=== PATIENT | female | born 1955 | race Caucasian/White ===

== ENCOUNTER 2024-06-05 13:12 | Outpatient (RCR) | payer MEDICARE, OTHER, SELFPAY | END 2024-06-05 23:59 | disposition home or self-care (01) | LOC: CRHB 13:12 | PROVIDERS: ATTENDING PHYSICIAN Internal Medicine Cardiovascular Disease; FAMILY PHYSICIAN Family Medicine | DX: I25.10 Atherosclerotic heart disease of native coronary artery without angina pectoris (principal); Z95.1 Presence of aortocoronary bypass graft | CPT/HCPCS: G0422; G0423 ==

== ENCOUNTER 2024-07-04 10:38 | Outpatient (RCR) | payer MEDICARE, OTHER, SELFPAY | END 2024-07-04 23:59 | disposition home or self-care (01) | LOC: CRHB 10:38 | PROVIDERS: ATTENDING PHYSICIAN Internal Medicine Cardiovascular Disease; FAMILY PHYSICIAN Family Medicine | DX: I25.10 Atherosclerotic heart disease of native coronary artery without angina pectoris (principal); Z95.1 Presence of aortocoronary bypass graft | CPT/HCPCS: G0422; G0423 ==

== ENCOUNTER 2024-08-04 10:02 | Outpatient (RCR) | payer MEDICARE, OTHER, SELFPAY | END 2024-08-04 23:59 | disposition home or self-care (01) | LOC: CRHB 10:02 | PROVIDERS: ATTENDING PHYSICIAN Internal Medicine Cardiovascular Disease; FAMILY PHYSICIAN Family Medicine | DX: I25.10 Atherosclerotic heart disease of native coronary artery without angina pectoris (principal); Z95.1 Presence of aortocoronary bypass graft | CPT/HCPCS: G0422; G0423 ==

== ENCOUNTER 2024-09-03 09:15 | Outpatient (RCR) | payer MEDICARE, OTHER, SELFPAY | END 2024-09-03 23:59 | disposition home or self-care (01) | LOC: CRHB 09:15 | PROVIDERS: ATTENDING PHYSICIAN Internal Medicine Cardiovascular Disease; FAMILY PHYSICIAN Family Medicine | DX: I25.10 Atherosclerotic heart disease of native coronary artery without angina pectoris (principal); I25.110 Atherosclerotic heart disease of native coronary artery with unstable angina pectoris (principal); Z95.1 Presence of aortocoronary bypass graft | CPT/HCPCS: G0422; G0423 ==

== ENCOUNTER 2025-04-27 17:34 | Observation (INO) | payer MEDICARE, OTHER, SELFPAY ==
[2025-04-27 12:22] LABS: Hematocrit 42.0 % (37.0-47.0); Hemoglobin 13.9 g/dL (12.0-16.0); Mean Corp Hgb Conc. 33.1 g/dL (33.0-37.0); Mean Corpuscular Volume 89.4 fL (81.0-99.0); Nucleated Red Blood Cells % 0 %; Platelet Count 197 10^3/uL (130-400); Red Cell Dist. Width 14.0 % (11.5-14.5)
[2025-04-27 12:32] LABS: ALT (SGPT) 19 U/L (0-35); AST (SGOT) 21 U/L (14-36); Albumin 4.5 g/dl (3.5-5.0); Alkaline Phosphatase 73 U/L (38-126); Blood Urea Nitrogen 17 mg/dl (7-17); Calcium 9.1 mg/dl (8.4-10.2); Carbon Dioxide 23 mmol/L (22-30); Chloride 108 mmol/L (98-107); Glucose 126 mg/dl (70-99); Potassium 4.0 mmol/L (3.5-5.1); Sodium 138 mmol/L (135-145); Total Protein 7.0 g/dl (6.3-8.2); eGFR > 60.00
--- NOTE | 2025-04-27 12:47 | ED.GENMED ---
History of Present Illness
General
Chief Complaint: Visual Problem
Source: patient
Exam Limitations: none
Time Seen by Provider: 04/27/25 12:33
Nursing documentation reviewed up to this point in time: agreed with
History of Present Illness
History of Present Illness:
Patient with a history of CABG in May 2023, currently on 81 mg aspirin daily, presents to ED secondary to sudden onset of blurry vision, followed by double vision, yesterday afternoon, which now has resolved completely. Double vision described
as objected on top of each other vertically when looking straight ahead. Patient spoke with her primary care physician who advised patient to patient. In addition, patient is complaining of posterior neck pain, which she has had for the past 4 to 5
days, attributed to recent shopping. Denies headache. Denies dizziness. Denies loss of sensation or weakness. Denies difficulty with ambulation. Denies difficulty with swallowing. However, over the past 2 days, patient has noted that she had
difficulty explaining/verbalizing what she was thinking. Denies previous history of similar symptoms. Denies recent illness. Denies recent change in medications or diet.
Review of Systems
Review of Systems
Allergies reviewed?: Yes
All Other Systems: ROS reviewed and negative except as documented in HPI and ROS
Constitutional: Reports no symptoms
Respiratory: Reports no symptoms
Cardiac: Reports no symptoms
ABD/GI: Reports no symptoms
: Reports no symptoms
Musculoskeletal: Reports neck pain
Skin: Reports no symptoms
Neurological: Reports other (Blurred/double vision)
Phy Exam
Physical Exam
Physical Exam:
Physical Exam
General: no apparent distress, not acutely ill. afebrile.
Head: nc/at. eomi
Neck: supple. normal range of motion.
Heart: s1/s2 regular rate and rhythm
Lungs: no acute respiratory distress. clear bilaterally
Abdomen: normal bowel sounds. not tender.
Neuro: alert and oriented x 3. no focal neurological deficits. normal speech. normal gait
Skin: no rash
Psychiatric: well kept. interactive and cooperative
Extremities: no edema. no calf tenderness.
Course
Orders/Labs/Results
Orders:
Orders
04/27/25 11:56
CT Head W/o Iv Contrast Urgent
Comment: denies today. sent in to r/o TIA
Reason For Exam: double vision yesterday
04/27/25 12:09
Cardiovascular Evaluation Urgent
Complete Blood Count/With Diff Urgent
Comprehensive Metabolic Panel Urgent
Glycohemoglobin (HgbA1c) Urgent
04/27/25 12:56
Electrocardiogram (*1) Urgent
Reason for Study: TIA/Stroke
CT Head & Neck Angio W/wo IV Urgent
Comment:
Reason For Exam: neck pain w blurred/double vision
EKG- Treatment ONCE
04/27/25 14:38
Acetaminophen [Tylenol] 1,000 mg PO NOW STA
04/27/25 15:03
Add On- LAB Routine
Tests Added?: lipid panel, hgb A1C
04/27/25 16:17
Aspirin 243 mg PO NOW STA
Clopidogrel Bisulfate [Plavix] 300 mg PO NOW STA
04/27/25 16:49
Admit/Transfer Patient As Directed
Co-Sign Provider:
Level of Care: Observation services
Assign to:: Telemetry
Physician / Group: Htay
Diagnosis: Double Vision
Reason for Telemetry: CVA/TIA
Date to Stop Telemetry: 04/30/25
Time to Stop Telemetry: 11:00
PRN Pain Medication Management As Directed
May give lesser potent ordered pain med per pt: Yes
preference::
Protocol:: Medication orders for pain may be administered in a
manner that supports deferring to patient preference
when the pt is:
- Requesting an ordered lesser potent pain medication.
Least to most potent pain medications are defined
as: acetaminophen < NSAID < tramadol < opioids
(morphine, oxycodone, hydromorphone).
- Requesting a lesser dose of the same medication IF
ORDERED.
- Requesting a less intrusive route of administration
if both routes are prescribed by the provider (PO <
IV).
04/27/25 16:50
Code Status As Directed
Resuscitation Status: Full Code
04/27/25 19:10
Acetaminophen [Tylenol/Feverall] 650 mg RECTAL Q4HPRN PRN
Acetaminophen [Tylenol] 650 mg PO Q4HPRN PRN
04/27/25 19:10
Echo 2D MMode Color/Doppler Routine
Reason for Study: TIA
Case Management Consult ONCE
Case Management Consult: Discharge Planning
Comment: stroke/tia
DIETARY IP CONSULT Routine
Reason for Consult: stroke/TIA
NEUROLOGY CONSULT Urgent
Consulting Provider: Octavio Masterson
Was physician already notified: Yes
Preparer Samples And Repairs Urgent
MR Brain Without Contrast Routine
Comment:
Reason For Exam: stroke/TIA
Recent pill cam endoscopy?: No
Activity As Directed
Activity Level: Out of Bed-Early Mobility
NIH Stroke Scale As Directed
Directions: Per protocol
Comment: every shift and with any change in condition or mental status
Neurological Checks As Directed
Frequency: q4h
Additional Instructions:: q4h x 24h upon admission to the floor, then qshift & with any change in condition
and mental status
Patient Education As Directed
Type: Stroke education packet
Comment: provide to patient and family
Pneumatic Compression Sleeves As Directed
Type: Knee high
Vital Signs As Directed
Frequency: Per unit guidelines
Call for:: BP greater than 180/105 mmHg or less than 100/60 mmHg
Ot Eval And Treat Routine
Pt Eval And Treat Routine
Activity Level: Out of Bed-Early Mobility
Speech Therapy Eval & Treat Routine
DX Deep Vein Thrombosis Video Routine
04/28/25 08:00
Aspirin Low Dose EC [Aspir Low (Enteric Coated)] 81 mg PO DAILY
Clopidogrel Bisulfate [Plavix] 75 mg PO DAILY
Metoprolol Xl [Toprol Xl] 25 mg PO DAILY
04/30/25 11:00
DC Protocol for Telemetry ONCE
Abnormal Lab Results
04/27/25
12:09
MPV 10.6 H fL
(7.4-10.4)
Chloride 108 H mmol/L
(98-107)
Glucose 126 H mg/dl
(70-99)
Total Cholesterol 245 H mg/dl
(50-199)
04/27/25 12:09
04/27/25 12:09
Vital Signs
Initial and Last Documented VS:
Initial Vital Signs
Temp Pulse Resp Pulse Ox
98.2 F 81 16 98
04/27/25 11:52 04/27/25 11:52 04/27/25 11:52 04/27/25 11:52
Last Documented Vital Signs
Temp Pulse Resp BP Pulse Ox
97.6 F 61 18 146/79 99
04/27/25 19:48 04/27/25 19:48 04/27/25 19:48 04/27/25 19:48 04/27/25 19:48
MDM/Problems Addressed
MDM/Problems Addressed:
CT/CTA head and neck report reviewed and discussed with patient.
Patient evaluated in ED by neurology, , who recommends patient to be admitted to the hospitalist service for further evaluation and treatment. Recommend starting patient on aspirin and Plavix.
*Pulse Oximetry
SaO2: 98
Oxygen Mode of Delivery: Room air
Patient hypoxic: no
*Critical Care Note
Total Time (30-74mins, 75-104mins- exclusive of procedures): Not Applicable
ED Attending Note
-
Portions of this chart may have been created with voice recognition software.� Occasional wrong word or��sound alike� substitutions may have occurred due to the inherent limitations of voice recognition software.
Discharge Plan
Departure
Patient Disposition: Admit
Date of Disposition: 04/27/25
Time of Disposition: 16:18
Admit to: Telemetry
Presentation/result/management discussed w/ accepting MD/DO: Hospitalist
Discharge Problem:
Brain TIA
Interventions
Interventions:
*General Assessment Last Done: 04/27/25 11:52
*Neglect/Abuse Screening Last Done: 04/27/25 11:52
*ED COVID-19 Vaccine History Last Done: 04/27/25 19:23
*ED Influenza Vaccine History Last Done: 04/27/25 11:52
[facility] Fall Risk Assessment Tool Last Done: 04/27/25 11:48
*Risk Screen - Suicide (C-SSRS) Last Done: 04/27/25 11:52
*Nursing Disposition Last Done: 04/27/25 19:14
ED- Neurological Assessment Last Done: 04/27/25 13:28
ED-EENT Assessment Last Done: 04/27/25 13:28
ED Swallowing Screen Last Done: 04/27/25 13:28
Discharge Date and Time
Discharge Date/Time: 04/27/25 19:14
[2025-04-27 14:00] VITALS: BP 138/71
--- NOTE | 2025-04-27 14:17 | CON.NEURO ---
Addendum entered and electronically signed by Octavio Masterson MD 04/27/25 20:08:
The patient was seen and examined today along with the nurse practitioner Michelle Nguyen, and agree with her assessment and management plan. Given below is my addendum.
Patient is a 70 year old female with a history of CABG in May 2023, currently on 81 mg aspirin daily, presented to [facility] on 04/27/2025 secondary to sudden onset of blurry vision, followed by double vision, yesterday afternoon, and she says that
she also had some difficulty in getting the words out. At this time all of her symptoms have resolved completely and therefore she is not TNK candidate.
CT of the head did not show acute intracranial abnormality
CTA of the head and neck did not show a large vessel occlusion.
Neurologic examination:
Alert and oriented x 3, speech is clear, the cranial nerves II to XII grossly intact, the motor strength is grossly 5/5 bilaterally, the sensations are intact and there is no limb ataxia seen.
The plan is to keep the patient on stroke pathway.
Aspirin 81 mg daily
Plavix 75 mg daily
Atorvastatin 40 mg daily
Echocardiogram
Ophthalmologic examination as an outpatient
LDL goal of less than 70
MRI of the brain without contrast.
Original Note:
Neuro Assessment/Plan
Assessment
Patient is a 70 year old female with a history of CABG in May 2023, currently on 81 mg aspirin daily, presented to [facility] on 04/27/2025 secondary to sudden onset of blurry vision, followed by double vision, yesterday afternoon, which now has
resolved completely and therefore not a TNK candidate.
Head CT: No acute intracranial abnormality.
Head/neck CTA: No significant atherosclerotic narrowing or hemodynamically significant bilateral carotid arterial stenosis. No findings to suggest internal carotid artery or vertebral artery dissection bilaterally. No significant proximal
intracranial arterial stenosis bilaterally.
MRI: pending
Labs: pending
Plan
Impression: abrupt onset of blurry vision and diplopia with differentials being TIA vs migraine with aura
-check MRI brain without contrast to evaluate for stroke
-BP goal is normotension.
-start ASA 81mg and Plavix 75 mg daily for 21 days followed by monotherapy with ASA
-check hemoglobin A1C. Goal is normoglycemia.
-check LDL, goal <70 pending results may start atorvastatin
-check an echocardiogram.
-PT/OT/ST evaluations
-DVT prophylaxis
-continue neurochecks and NIHSS per unit guidelines
-stroke education packet
All questions encouraged and answered, plan of care discussed with Dr. Masterson, Dr. Gibbs and patient
Consultation
Order
Date of Consultation: 04/27/25
Requesting Provider: ED/ Dr. Quinton Gibbs
Reason for Consult: blurry vision and diplopia
Subjective/Objective
Subjective Data
Date of Service: April 27, 2025
Patient is a 70 year old female with a history of CABG in May 2023, currently on 81 mg aspirin daily, presented to [facility] on 04/27/2025 secondary to sudden onset of blurry vision, followed by double vision, yesterday afternoon, which now has
resolved completely. Double vision described as objected on top of each other vertically when looking straight ahead. Patient spoke with her primary care physician who advised patient to come to ED to be evaluated. In addition, patient is
complaining of posterior neck pain, which she has had for the past 4 to 5 days, attributed to recent shopping. Denies headache. Denies dizziness. Denies loss of sensation or weakness. Denies difficulty with ambulation. Denies difficulty with
swallowing. However, over the past 2 days, patient has noted that she had difficulty explaining/verbalizing what she was thinking. Denies previous history of similar symptoms. Denies recent illness. Denies recent change in medications or diet.
NIHSS 0 not a TNK candidate due to out of window and symptom resolution. Head CT with no acute intracranial abnormality. CTA head and neck negative for high grade stenosis or LVO.
Objective Data
Vital Signs
Temp Pulse Resp Pulse Ox
98.2 F 81 16 98
04/27/25 11:52 04/27/25 11:52 04/27/25 11:52 04/27/25 12:47
Lab Results
04/27/25 12:09
04/27/25 12:09
Sodium 138 mmol/L (135-145) 04/27/25 12:09
Potassium 4.0 mmol/L (3.5-5.1) 04/27/25 12:09
BUN 17 mg/dl (7-17) 04/27/25 12:09
Glucose 126 mg/dl (70-99) H 04/27/25 12:09
Calcium 9.1 mg/dl (8.4-10.2) 04/27/25 12:09
Patient Allergies
Penicillins Allergy (Verified 04/27/25 11:56)
Unknown
CVA Assessment
Onset of Stroke Symptoms
Onset of symptoms known: Yes
Date of onset of symptoms: 04/26/25
Time of onset of symptoms: 09:15
Time pt last seen normal is known: No
NIH Stroke Score
Level of Consciousness: 0 - Alert
LOC Questions: 0-Answers both correctly
LOC Commands: 0-Performs both correctly
Best Horizontal Gaze: 0-Normal
Visual Ziegler: 0=Normal, no visual loss
Facial Palsy: 0=Normal, symmetrical
Motor - Right Arm: 0=No drift 10 seconds
Motor - Left Arm: 0=No drift 10 seconds
Motor - Right Le-No drift 5 seconds
Motor - Left Le-No drift 5 seconds
Limb Ataxia: 0-Absent
Sensation: 0-Normal
Best Language: 0-No aphasia
Dysarthria: 0-Normal
Extinction and Inattention: 0-No abnormality
NIH Total Score:: 0
Tenecteplase Contraindications
Inclusion and Exclusion criteria reviewed: Yes
Reasons for NON-Tx with Thrombolytics ABSOLUTE Exclusions: Time-out of window
IAT Contraindications: >6 hrs from onset/last seen normal and NIHSS < 6
Modified Jim Score (MRS)
-
Modified [place] Scale (mRS): No symptoms
Score: 0
Physical Exam
-
General: Comfortable and Appears Stated Age
HEENT: Normocephalic and Atraumatic
Neck: Full Range of Motion
Respiratory: No Dyspnea
Cardiac: No JVD
GI: Non-distended
Skin: Unremarkable
Extremities: No Clubbing, No Cyanosis and No Edema
Psych: Unremarkable
Extended Neurological Exam
Mood & Affect: Mood Unremarkable
Attention Span & Concentration: Awake, Alert, Interactive and No Difficulty with 2 Step Request
Memory: Unremarkable
Involuntary Movement: None
Speech: Quality Unremarkable, Quantity Unremarkable and Rate of Production Unremarkable
Cranial Nerve II: Left Eye: Visual Ziegler Intact
Cranial Nerve II: Right Eye: Visual Ziegler Intact
Cranial Nerves III, IV, : Extraocular Movement: Extraocular Movement Full in all Directions
Cranial Nerve VII: Facial Symmetry: Normal Facial Symmetry
Cranial Nerve VIII: Hearing: Unremarkable Hearing to Normal Conversational Volume
Muscle Strength, Overall: Full Throughout
Pronator Drift: No Drift in Upper Extremities and No Drift in Lower Extremities
Coordination: Vbknes-pqgy-[id number] Testing Unremarkable and Gjzh-Qbur-Lfmw movements intact bilaterally
Data Reviewed
-
CT-A: Report Reviewed and Image Reviewed
CT Head: Report Reviewed and Image Reviewed
MRI Head: Ordered
Medical Test Reports: Report Reviewed
Labs: Report Reviewed
Lipid Profile: Ordered
HgbA1C: Ordered
Reviewed with: Physician and Patient
Old Records: Summarized
[2025-04-27] MEDS: TYLENOL 1000 MG PO (14:46)
[2025-04-27 16:16] LABS: HDL Cholesterol 49 mg/dl; LDL Cholesterol, Calculated 180 mg/dl; Very Low Density Lipoprotein 16 mg/dl (0-30)
[2025-04-27] MEDS: ASPIRIN 243 MG PO (16:24)
--- NOTE | 2025-04-27 16:24 | HPS.HSE ---
Family Physician
-
Family Physician: Fran Viramontes
Chief Complaint
-
Double Vision
History of Present Illness
Patient is a 70 y/o female past medical history of coronary artery disease s/p CABG, hypertension and hyperlipidemia who presents with double vision. Patient reports yesterday while driving to congregation she noticed that her vision was not clear,
particularly when looking far away. Later on that day she noticed true double vision described as one image above another. She contacted her eye doctor this morning who instructed her to go to the ED for evaluation. At present time she notes her
vision is improved, but did not a transient episode of blurry vision while in the ED earlier. She also notes an episode of word finding difficulty about a week ago. She is osiel complaining of a posterior headache which has been present for the last
few weeks which she attributes to tension / stress from the holidays.
Medical History
Past Medical History
Past Medical History: Reports Other
Additional Past Medical History:
Coronary Artery Disease s/p CABG
Essential Hypertension
Hyperlipidemia
Past Surgical History: Reports Other
Additional Past Surgical History:
CABG
Left Knee Replacement
Appendectomy
Cholecystectomy
Section
Social History
Tobacco: Non-smoker
Alcohol: None
Family History
Family History: Not pertinent
Allergies / Home Medications
Allergies reflects when Allergies were last updated in [employer].
Home Medications with original date entered in [employer]
Allergy/Medication List:
Allergies
Allergy/AdvReac Type Severity Reaction Status Date / Time
Penicillins Allergy Unknown Verified 04/27/25 11:56
Home Medications
ascorbic acid (vitamin C) 500 mg tablet (Vitamin C) 500 mg PO DAILY 04/27/25
aspirin 81 mg tablet,delayed release 81 mg PO DAILY 04/27/25
metoprolol succinate 25 mg tablet,extended release 24 hr 25 mg PO DAILY 04/27/25
zinc 1 tab PO DAILY 04/27/25
Review of Systems
-
History Source: Patient
A 12 point ROS was completed and negative except as noted: Yes
Constitutional: Denies Fever or Chills
Respiratory: Denies Cough or Trouble Breathing
Cardiac: Denies Chest Pain or Palpitations
Abdomen/GI: Denies Abdominal Pain, Nausea, Vomiting, Diarrhea or Constipated
Neurological: Reports See HPI
Physical Exam
Vital Signs
Vital Signs
Temp Pulse Resp BP Pulse Ox
98.2 F 81 16 138/71 98
04/27/25 11:52 04/27/25 11:52 04/27/25 11:52 04/27/25 14:00 04/27/25 12:47
Physical Exam
General: Well Developed, Well Nourished and No Apparent Distress
HEENT: NormoCephalic, Anicteric, Moist mucous membranes and Atraumatic
Respiratory: Clear and Non Labored Respirations; No Wheezes, Rales or Rhonchi
Cardiac: S1/S2 and Regular Rhythm; No Murmur
GI: Soft, Non Tender, Non Distended and Normal Bowel Sounds
Rectal: Deferred by Provider
Musculoskeletal: No Clubbing, No Cyanosis and No Edema
Skin: Warm and Dry; No Rash
Neuro: Awake, Alert, Oriented and No Motor Deficits; No Slurred Speech or Facial Droop
Psych: Calm
Laboratory Results
-
04/27/25 12:09
04/27/25 12:09
Laboratory Results
Total Bilirubin 0.7 mg/dl (0.2-1.3) 04/27/25 12:09
AST 21 U/L (14-36) 04/27/25 12:09
ALT 19 U/L (0-35) 04/27/25 12:09
Alkaline Phosphatase 73 U/L (38-126) 04/27/25 12:09
Data Reviewed
-
CT Scan: Report Reviewed by me
Lab Data: Labs Reviewed by me
Impression/Plan
-
Blurry / Double Vision, possible TIA vs Migraine with Aura
-Consult Neurology
-Check Brain MRI
-Continue aspirin and Plavix
Hyperlipidemia
-LDL 180
-Patient reports intolerance to statins
-She has a prescription for Repatha which she has not started. Encouraged her to start taking after discharge
Essential Hypertension
-Continue metoprolol
Coronary Artery Disease s/p CABG
-Continue aspirin
DVT proph: SCDs
Code Status: Full Code
[2025-04-27] MEDS: PLAVIX 300 MG PO (16:25)
--- NOTE | 2025-04-27 16:35 | W.PN.UPDATE ---
Update Note
Progress Note Update
This note serves as an addendum to the H&P by tool design draftsperson Niki LOPEZ
HPI�
70F
PHX: CABG 70F in May 2023,daily babay ASA,
- seen at ER : foar abnormal vision
- sudden onset of blurry vision, followed by double vision, yesterday afternoon, which now has resolved completely.
- hence Not a TNK candidate
- Double vision described as objected on top of each other vertically when looking straight ahead.
- PCP suggest to evalaut at ER
- posterior neck pain, which she has had for the past 4 to 5 days, attributed to recent shopping.
- However, over the past 2 days, patient has noted that she had difficulty explaining/verbalizing what she was thinking.
ROS
Denies headache.
Denies dizziness.
Denies loss of sensation or weakness.
Denies difficulty with ambulation.
Denies difficulty with swallowing.
Vital Signs
Temp Pulse Resp BP Pulse Ox
98.2 F 81 16 138/71 98
04/27/25 11:52 04/27/25 11:52 04/27/25 11:52 04/27/25 14:00 04/27/25 12:47
PE
Gen: NAD
HEENT: symmetric face , fluent speech
Neck: supple
Lungs: CTA
Cor: RRR S1 S2
Abdomen:�benign
TANNING DRUM OPERATOR: NFND
MS:no edema
Psych:nl mood
Relevant Data
04/27/25
12:09
WBC 5.0
Hgb 13.9
Plt Count 197
Sodium 138
Potassium 4.0
Chloride 108 H
Creatinine 0.9
eGFR > 60.00
Glucose 126 H
Hemoglobin A1c Pending
Triglycerides 83
Total Cholesterol 245 H
LDL Cholesterol, Calc 180
VLDL Cholesterol, Calc 16
HDL Cholesterol 49
HCT :
No acute intracranial abnormality.
CT H & N :
No significant atherosclerotic narrowing or hemodynamically significant bilateral carotid arterial stenosis.
No findings to suggest internal carotid artery or vertebral artery dissection bilaterally. No significant proximal intracranial arterial stenosis bilaterally.
ASSESSMENT & PLAN
Abrupt onset of blurry vision and diplopia
One episode of transient word finding difficulty 1 week ago
DDX: TIA vs migraine with aura
HX Intolerance to statin
- Brain MRI wo
- BP goal: normotension.
- Agree with ASA 81mg and Plavix 75 mg daily for 21 days followed by monotherapy with ASA
- Pending Hgb A1C
- LDL 180 - has Repatha at home prescribed by Madalyn mariano and rather she takes it than atorvastatin
- TTE
HX quadruple CABG Jan 2024
- on LOOM CHANGEOVER OPERATOR ASA and Metoprolol
DVT Px:
Code:
IP/Obs
[2025-04-27 19:48] VITALS: BP 146/79; BMI 28.1
[2025-04-27 23:26] VITALS: BP 127/71
[2025-04-28 03:37] VITALS: BP 127/70
--- NOTE | 2025-04-28 04:12 | PTCARENOTE ---
Pt arrived on the floor on stretcher and ambulated to the room. VS taken. Pt denies any pain. Pt's NIH score was 1. Pt on tele monitor. Educated pt on medications, safety, and use of call fishman.
[2025-04-28 07:00] VITALS: BP 128/71
--- NOTE | 2025-04-28 07:15 | W.PN.HOSP.TC ---
Today's Communication/Plan
-
Echo today
Discharged today
Continue aspirin 81 mg daily and Plavix 75 mg daily for 20 more days then stop taking Plavix monotherapy
start take Repatha once discharge for cholesterol (LDL 180, with history of CABG and possible TIA here goal should be <70)
follow up with cardiology and neurology as an outpatient visit
follow up with ophthalmology as an outpatient for blurry vision
Assessment / Plan
Assessment / Plan
70 y/o female past medical history of coronary artery disease s/p CABG, hypertension and hyperlipidemia who presents with double vision. Patient reports yesterday while driving to [place] she noticed that her vision was not clear, particularly when
looking far away. Later on that day she noticed true double vision described as one image above another. She contacted her eye doctor this morning who instructed her to go to the ED for evaluation. At present time she notes her vision is improved,
but did not a transient episode of blurry vision while in the ED earlier. She also notes an episode of word finding difficulty about a week ago. She is osiel complaining of a posterior headache which has been present for the last few weeks which she
attributes to tension / stress from the holidays.
Plan:
Blurry / Double Vision, possible TIA vs Migraine with Aura
-Consult Neurology
-Brain MRI: no acute stroke
-CT of the head did not show acute intracranial abnormality
-CTA of the head and neck did not show a large vessel occlusion.
-Continue aspirin and Plavix for 21 days and then only Plavix
-follow up with ophthalmology as an outpatient for blurry vision
Hyperlipidemia
-LDL 180
-Patient reports intolerance to statins
-start Repatha after discharge goal of LDL less than 70
Essential Hypertension
-Continue metoprolol
Coronary Artery Disease s/p CABG
-Continue aspirin
DVT proph: SCDs
Code Status: Full Code
Anticipated Discharge: Today
Subjective/Interval History
-
Date of Service: April 28, 2025
No overnight event. Per nurse , the patient still has intermittent blurry and double vision. No other symptoms.
Objective Data
-
Vital Signs:
Vital Signs
Temp Pulse Resp BP Pulse Ox
97.5 F 64 16 127/70 96
04/28/25 03:37 04/28/25 03:37 04/28/25 03:37 04/28/25 03:37 04/28/25 03:37
I&O
04/27/25 04/28/25 04/29/25
06:59 06:59 06:59
Intake Total 480 / 480
Balance 480 / 480
Review of Systems
-
Unable to obtain full review of systems at this time due to: Other (Patient was down Echo)
Physical Exam
-
General: Other (No physical exam performed , pt was down for echo )
[2025-04-28] MEDS: PLAVIX 75 MG PO (08:12)
[2025-04-28] MEDS: ASPIR LOW (ENTERIC COATED) 81 MG PO (08:12)
[2025-04-28] MEDS: TOPROL XL 25 MG PO (08:12)
[2025-04-28 08:51] LABS: Glycohemoglobin (HgbA1c) 5.3 % (4.0-5.9)
[2025-04-28 11:00] VITALS: BP 143/75
[2025-04-28 11:06] VITALS: BP 138/70; PULSE 63; O2SAT 99
[2025-04-28 11:31] VITALS: BP 138/70; O2SAT 99
--- NOTE | 2025-04-28 12:05 | PTOTSP ---
Pt presents to OT stating all symptoms have resolved with exception to posterior headache of 3-4/10. Currently with grossly intact vision, cognition and UB ROM, strength and coordination. Currently at mod I level with basic self care, transfers and
functional mobility in room and bathroom without AD. No further skilled OT indicated at this time.
--- NOTE | 2025-04-28 12:52 | CM ---
Alert awake oriented patient who lives with Tavon in a 2 story with 2 steps to enter and 16 steps to bed/bathroom. She is independent in driving and all ADLs. No adaptive devices. Offered VN she declined need.
[place] reviewed signed on chart.
LORIE Munguia VN/SNF
[facility] [place]
PCP DR Viramontes
PLAN Home no needs
--- NOTE | 2025-05-01 20:07 | W.DCSUMMARY ---
Documented by User: Luis Edmonds MD, Resident 05/01/25 21:00
Discharge Summary
Discharge Data
Date of Admission: 04/27/25
Date of Discharge: 04/28/25
-
Pending Results: No
Hospital Course
Discharging physician:
Eric Santiago
Luis Edmonds
Disposition:
Home
Primary Care Physician:
Fran Viramontes
Principal Discharge Diagnosis:
Transient ischemic attack
Diplopia (double vision)
Headache
Expressive aphasia prior to arrival
Chronic Discharge Diagnosis:
Coronary artery disease s/p CABG
Hypertension
Hyperlipidemia
Hospital Course:
70 y/o female who presented with double vision started yesterday while driving to [place] she noticed that her vision was not clear, particularly when looking far away. Later on that day she noticed true vertical double vision. She contacted her
eye doctor that morning who instructed her to go to the ED for evaluation. At the ER she noted her vision has improved, . She also noted an episode of word finding difficulty about a week ago and complaining of a posterior headache which has been
present for the last few weeks which she attributes to tension / stress from the holidays.
At the ER, CT of the head did not show acute intracranial abnormality and CTA of the head and neck did not show a large vessel occlusion and MRI of the brain showed no acute stroke (see below details). Neurology consulted and her symptoms possibly
related to TIA vs Migraine with Aura. Her symptoms have resolved completely upon arrival to ED and therefore she was not TNK candidate. She started on aspirin and Plavix for 21 days and then continue only Plavix.
Her LDL 180, She reported intolerance to statins , so she started on Repatha at discharge goal of LDL less than 7.
Advised to make and appt as an out patient and follow-up with ophthalmology and within one week with her PCP.
All her other chronic medical conditions have been managed with her home medication.
She discharged home in stable condition.
Important Imaging:
Head CT scan 04/27/2025 :No acute intracranial abnormality.
CT Head & Neck Angio W/wo IV 04/27/2025:No vascular stenosis
MR Brain Without Contrast on 04/27/2025:
1. No MRI evidence for acute infarct or intracranial hemorrhage.
2. 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
3. 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
4. Low-lying cerebellar tonsils.
5. Mild diffuse cerebral and cerebellar volume loss.
6. Previous bilateral medial maxillary antrostomies.
7. Chronic right maxillary sinusitis.
8. Moderate fluid in the right mastoid air cells.
9. Severe bilateral facet joint arthrosis in the cervical spine.
Discharge Plan
-
Patient Disposition: Home (Routine Discharge)
Discharge Diagnosis/Procedures: Transient ischemic attack
Diplopia (double vision)
Headache
Expressive aphasia prior to arrival
Condition: Fair
Diet: Low Cholesterol
Additional Diets: Mediterranean diet encouraged
Activity: As tolerated
Additional Activity: 30 minutes aerobic activity daily
Driving Restrictions: Not until seen by your Dr
Bathing Restrictions: None
Blood Work: Lipid panel in 3 months
Instructions: Transient ischemic attack
Referrals:
Rob Cha MD [Active, Ophthalmology] - in less than 1 week
Fran Viramontes MD [Family Provider, Family Practice]
Additional Discharge Medication Instructions: Continue aspirin 81 mg daily and Plavix 75 mg daily for 20 more days then stop taking Plavix
Once discharged you should start taking Repatha for your cholesterol (LDL 180, with your history of CABG and possible TIA here goal should be <70).
Prescriptions:
New
clopidogrel 75 mg Tablet
75 mg PO DAILY 20 Days Qty: 20 0RF
Repatha SureClick 140 mg/mL pen injector
140 mg SC Q2W Qty: 1 0RF
Continued
aspirin 81 mg Tablet,Delayed Release (/Ec)
81 mg PO DAILY
ascorbic acid (vitamin C) [Vitamin C] 500 mg Tablet
500 mg PO DAILY
metoprolol succinate 25 mg Tablet Extended Release 24 Hr
25 mg PO DAILY
zinc
1 tab PO DAILY
Discharge Orders:
Discharge Patient (As Directed); Ordered 04/28/25
Ordered By: Eric Santiago
Discharge Date and Time
Discharge Date/Time: 04/28/25 13:09
Print Language: [place] CIT[place]

Documented by User: Eric Santiago DO 05/02/25 10:57
Discharge Summary
Discharge Data
Date of Admission: 04/27/25
Date of Discharge: 04/28/25
Total time spent discharging patient (in min): 38
Discharge Plan
-
Patient Disposition: Home (Routine Discharge)
Discharge Diagnosis/Procedures: Transient ischemic attack
Diplopia (double vision)
Headache
Expressive aphasia prior to arrival
Condition: Fair
Diet: Low Cholesterol
Additional Diets: Mediterranean diet encouraged
Activity: As tolerated
Additional Activity: 30 minutes aerobic activity daily
Driving Restrictions: Not until seen by your Dr
Bathing Restrictions: None
Blood Work: Lipid panel in 3 months
Instructions: Transient ischemic attack
Referrals:
Rob Cha MD [Active, Ophthalmology] - in less than 1 week
Fran Viramontes MD [Family Provider, Family Practice]
Additional Discharge Medication Instructions: Continue aspirin 81 mg daily and Plavix 75 mg daily for 20 more days then stop taking Plavix
Once discharged you should start taking Repatha for your cholesterol (LDL 180, with your history of CABG and possible TIA here goal should be <70).
Prescriptions:
New
clopidogrel 75 mg Tablet
75 mg PO DAILY 20 Days Qty: 20 0RF
Repatha SureClick 140 mg/mL pen injector
140 mg SC Q2W Qty: 1 0RF
Continued
aspirin 81 mg Tablet,Delayed Release (Dr/Ec)
81 mg PO DAILY
ascorbic acid (vitamin C) [Vitamin C] 500 mg Tablet
500 mg PO DAILY
metoprolol succinate 25 mg Tablet Extended Release 24 Hr
25 mg PO DAILY
zinc
1 tab PO DAILY
Discharge Orders:
Discharge Patient (As Directed); Ordered 04/28/25
Ordered By: Eric Santiago
Discharge Date and Time
Discharge Date/Time: 04/28/25 13:09
Print Language: [place]
== END 2025-04-28 13:09 | disposition home or self-care (01) ==
LOC: 4 EAST ACU 17:34
PROVIDERS: Emergency Medicine; Specialist Research Data Abstracter/Coder; ADMITTING PHYSICIAN Internal Medicine; ATTENDING PHYSICIAN Internal Medicine; CONSULT PHYSICIAN Psychiatry & Neurology Neurology; EMERGENCY PHYSICIAN Emergency Medicine; FAMILY PHYSICIAN Family Medicine
DX: G45.9 Transient cerebral ischemic attack, unspecified (principal); H53.2 Diplopia; H53.8 Other visual disturbances; R51.9 Headache, unspecified; R47.01 Aphasia; I25.10 Atherosclerotic heart disease of native coronary artery without angina pectoris; I10 Essential (primary) hypertension; E78.5 Hyperlipidemia, unspecified; Z95.1 Presence of aortocoronary bypass graft; Z79.82 Long term (current) use of aspirin
CPT/HCPCS: 70450; 70496; 70498; 70551; 80053; 80061; 83036; 85025; 93306; 97162; 97166; 99285; G0378; Q9967